=== PATIENT | female | born 1970 | race Caucasian/White ===

== ENCOUNTER 2017-07-30 02:16 | Emergency (ER) | payer BC | END 2017-07-30 03:25 | disposition home or self-care (01) | LOC: D.ER 02:16 | DX: M54.12 Radiculopathy, cervical region (principal); M25.511 Pain in right shoulder; S46.001A Unspecified injury of muscle(s) and tendon(s) of the rotator cuff of right shoulder, initial encounter; X58.XXXA Exposure to other specified factors, initial encounter; Y93.89 Activity, other specified; Y92.89 Other specified places as the place of occurrence of the external cause; K21.9 Gastro-esophageal reflux disease without esophagitis; I10 Essential (primary) hypertension; F17.200 Nicotine dependence, unspecified, uncomplicated ==

== ENCOUNTER → 2017-08-27 13:27 | Outpatient (CLI) | payer BC | END | disposition home or self-care (01) | LOC: D.MRI 13:27 | DX: M47.22 Other spondylosis with radiculopathy, cervical region (principal) ==

== ENCOUNTER 2017-11-19 05:30 | Day surgery (SDC) | payer BC ==
[2017-11-18 10:45] LABS: HEMATOCRIT 42.2 % (36.0-48.0); HEMOGLOBIN 14.2 g/dL (12-16); MCH 32.6 pg (26.0-34.0); MCHC 33.6 g/dL (31.0-37.0); MEAN PLATELET VOLUME 10.5 fL (7.4-10.4); RBC 4.35 10x6/uL (4.00-5.40); RDW 13.4 % (11.5-14.5); WBC 9.1 10x3/uL (4.8-10.8)
[~2017-11-19] VITALS: Ht 149.9 cm; Wt 65.6 kg
[2017-11-19] VITALS (15 sets, daily range): BP systolic 110–138; BP diastolic 68–90; Ht 149.9 cm; Wt 65.6 kg
--- NOTE | ~2017-11-19 | OP ---
PATIENT NAME: RODO ROPER MEDICAL RECORD: [id number] :74 LOCATION:JUNIOR ADMISSION DATE: SURGEON: VENESSA BRASHER MD DATE OF OPERATION: 11/19/2017 PREOPERATIVE DIAGNOSIS: Spinal cord compression secondary to disc herniation and osteophyte formation at C4-5 and C5-6. POSTOPERATIVE DIAGNOSIS: Spinal cord compression secondary to disc herniation and osteophyte formation at C4-5 and C5-6. PROCEDURES: Anterior cervical discectomy and fusion with PEEK interbody cages at C4-5 and C5-6, removal of osteophytes, ViaCell bone stem cell allograft. Separate Zavation spine anterior cervical plate and screws, removal of osteophytes. SURGEON: Venessa Brasher MD DESCRIPTION AND TECHNIQUE: After induction of general endotracheal anesthesia, the patient was positioned supine on the operating table. Neck was prepped and draped in usual sterile fashion. Fluoroscopic x-ray and freer localized the C4-5 interspace. After infiltration with 1% lidocaine with 1:100,000 epinephrine into the subcutaneous tissues, a transverse skin incision was carried out from the midline to the sternocleidomastoid muscle. The platysma was divided with Bovie cautery. Using blunt and sharp dissection with Metzenbaum scissors, I proceeded in avascular plane medial to the carotid sheath. The C4-5 interspace was identified with fluoroscopic x-ray and spinal needle. The longus colli muscles were elevated from bodies of C4, C5, and C6. Self-retaining retractors were placed deep to longus colli muscles. [place] distracting pins were placed in the bodies of C4, C5, and C6. The disc space at C4-5 and C5-6 was incised with #11 blade. A series of pituitary rongeurs and curettes were used to remove the disc material at C4-5 and C5-6. The osteophytes were drilled away posteriorly with Midas-Alfredo drill under microscope illumination. The posterior longitudinal ligament was removed with Cloward rongeurs. Following this, the dura was decompressed well at both interspaces of C5-6 and C4-5. A PEEK interbody 7-mm cage was placed at C4-5 and an 8-mm cage was placed at C5-6 under distraction with [place] pins. Prior to this, each cage was filled with ViaCell bone stem cell allograft. Next, a Zavation anterior cervical plate and screws, was separate unit with midline plate. A 30 mm was used to span the C4-5 and C5-6 interspaces. The screws were advanced through the plate under fluoroscopic control. The locking cams were tightened over the screw heads. Meticulous hemostasis was maintained throughout the wound. The wound was irrigated with copious amounts of Ancef irrigant solution. The platysma and subdermal layer were closed with interrupted 3-0 Vicryl suture. The skin was reapproximated with Steri-Strips and benzoin. A sterile dressing was applied to the wound. The patient was awakened in good condition and taken to recovery. All counts were reported as correct. Estimated blood loss was minimal. TRANSINT:[id number] Voice Confirmation ID: [id number] DOCUMENT ID: [id number] OPERATIVE REPORT [id number] RODO ROPER, VENESSA JACKSON at 1556 CC: [id number] DICTATION DATE: 11/19/17 173 SUPERVISOR SPECIAL EDUCATION: 11/19/17 1923 [facility] 11/20/17 [facility] [address] [place] [address]
[~2017-11-19 05:30] MED LIST: COZAAR50 MG PO; CYCLOBENZAPRINE10 MG PO; HYDROCODONE-APA1 TAB PO; LOVASTATIN40 MG PO; NORVASC10 MG PO
[2017-11-20] VITALS (14 sets, daily range): BP systolic 124–166; BP diastolic 69–89
== END 2017-11-20 15:30 | disposition home or self-care (01) ==
LOC: D.OPS 05:30 → D.CVICU 05:30 → D.OPS 07:30 → D.CVICU 11:17 → D.OPS 11-20 15:30
PROVIDERS: Anesthesiology
DX: M50.021 Cervical disc disorder at C4-C5 level with myelopathy (principal); M25.78 Osteophyte, vertebrae; Z01.812 Encounter for preprocedural laboratory examination

== ENCOUNTER 2019-06-23 00:07 | Inpatient (IN) | payer BC ==
[~2019-06-23] VITALS: Ht 149.9 cm; Wt 50.9 kg
[2019-06-23] VITALS (7 sets, daily range): BP systolic 117–146; BP diastolic 63–92; Ht 149.9 cm; Wt 50.9 kg
[2019-06-23] MEDS ORDERED: ZANAFLEX4 MG PO (00:22)
[2019-06-23] MEDS ORDERED: CELEXA20 MG PO (00:23)
[2019-06-23 01:13] LABS: BASOPHILS 0.4 % (0-2); EOSINOPHILS 1.5 % (0-7); HEMATOCRIT 43.4 % (36.0-48.0); HEMOGLOBIN 14.5 g/dL (12-16); IMMATURE GRANULOCYTES 0.2 % (0-5); LYMPHOCYTES 19.3 % (15-50); MCH 32.4 pg (26.0-34.0); MCHC 33.4 g/dL (31.0-37.0); MCV 97.1 fL (80.0-100.0); MEAN PLATELET VOLUME 10.9 fL (7.4-10.4); MONOCYTES 3.3 % (2-11); NEUTROPHILS 75.3 % (40-80); PLATELET COUNT 287 10x3/uL (130-400); RBC 4.47 10x6/uL (4.00-5.40); RDW 13.1 % (11.5-14.5); WBC 11.5 10x3/uL (4.8-10.8)
[2019-06-23 01:16] LABS: BILIRUBIN NEGATIVE (NEGATIVE); GLUCOSE NEGATIVE (NEGATIVE); KETONE NEGATIVE (NEGATIVE); NITRITE NEGATIVE (NEGATIVE); SPECIFIC GRAVITY 1.005 (1.005-1.020); UROBILINOGEN NORMAL (NORMAL)
[2019-06-23 01:19] LABS: HCG URINE NEGATIVE (NEGATIVE)
[2019-06-23 01:26] LABS: CALC OSMOLALITY 279 mosm/kg (275-300); CALCIUM 9.2 mg/dL (8.5-10.1); CARBON DIOXIDE 29.7 mmol/L (21.0-32.0); CHLORIDE - SERUM 104 mmol/L (98-107); CREATININE - SERUM 0.8 mg/dL (0.6-1.3); GLUCOSE 117 mg/dL (74-106); POTASSIUM - SERUM 3.4 mmol/L (3.5-5.1); SODIUM 141 mmol/L (136-145); UREA NITROGEN 8 mg/dL (7-18); eGFR NON AFRICAN AMERICAN 82 mL/min (90-120)
[2019-06-23 01:32] LABS: ALBUMIN 4.2 g/dL (3.4-5.0); ALKALINE PHOSPHATASE 72 U/L (30-120); ALT (SGPT) 19 U/L (10-68); BILIRUBIN - TOTAL 0.33 mg/dL (0.2-1.3); PROTEIN - SERUM 7.3 g/dL (6.4-8.2)
--- NOTE | 2019-06-23 03:22 | NUR ---
EDP AT HEAD OF BED ADJUSTING BED BEFORE PELVIC EXAM BEGAN. THIS NURSE LEFT ROOM TO GET WET PREP VERBALLY ORDERED BY EDP. EDP STILL AT H.O.B. WHEN THIS NURSE RE-ENTERED ROOM.
--- NOTE | 2019-06-23 04:53 | NUR ---
PT LEAVING FLOOR FOR ORDERED ULTRASOUND AT THIS TIME.
--- NOTE | 2019-06-23 06:00 | NUR ---
PT BACK FROM ULTRASOUND- CHECKED ONCE AGAIN IN SQUATTING POSITION FOR TAMPON WITHOUT SUCCESS.
--- NOTE | 2019-06-23 06:58 | NUR ---
DR HUTCHINS AND THIS NURSE AT BEDSIDE FOR PELVIC EXAM AT THIS TIME.
--- NOTE | 2019-06-23 07:15 | NUR ---
REPORT GIVEN TO ALLAN MCCOY
--- NOTE | 2019-06-23 08:33 | NUR ---
REPORT GIVEN TO ALLAN LI. PER GUILLERMO, ROOM IS DIRTY AT THIS TIME.
--- NOTE | 2019-06-23 09:00 | NUR ---
CALLED [facility], ROOM STILL DIRTY.
--- NOTE | 2019-06-23 12:24 | NUR ---
PT ADMINISTERED PRE OP MEDICATIONS. PT TAKEN VIA BED TO PRE OP FOR PROCEDURE
--- NOTE | 2019-06-23 14:45 | NUR ---
PT RECEIVED FROM POST OP FOLLOWING PROCEDURE. PT AWAKE, ALERT AND ORIENTED. PT ASSISTED TO BR, PT WAS ABLE TO VOID WITH SMALL BLOODY DISCHARGE NOTED. IV REMAINS INTACT TO LEFT AC. DENIES PAIN AT THIS TIME. CL WITHIN REACH. ENCOURAGED TO CALL WITH NEEDS. FAMILY AT BEDSIDE.
[2019-06-23] MEDS ORDERED: DIFLUCAN150 MG PO (16:56)
[2019-06-23] MEDS ORDERED: FLAGYL500 MG PO (16:57)
[2019-06-23] MEDS ORDERED: CIPRO500 MG PO (16:57)
--- NOTE | 2019-06-23 17:43 | NUR ---
PT DISCHARGE PAPERWORK PROVIDED. DISCUSSED POSTOP AFTERCARE, S/S TO MONITOR FOR INFECTION AND BLEEDING. PRESCRIPTIONS PROVIDED, EDUCATION PROVIDED REGARDING MEDICATIONS. PT VOICES UNDERSTANDING, DENYING ANY QUESTIONS. IV DISCONTINUED FROM LEFT AC, CATH INTACT. PT TAKEN TO PRIVATE VEHICLE WITH ALL PERSONAL POSESSIONS.
--- NOTE | 2019-06-24 08:37 | OP ---
PATIENT NAME: RODO ROPER MEDICAL RECORD: [id number] :74 LOCATION:D.MS Santos2210 ADMISSION DATE:06/23/19 SURGEON: ADAN CAMPOS MD DATE OF OPERATION: 06/23/2019 PREOPERATIVE DIAGNOSIS: Suspected retained foreign body within the rectum. POSTOPERATIVE DIAGNOSES: No evidence of retained foreign body in the rectum. PROCEDURE: Flexible sigmoidoscopy. SURGEON: Adan Campos MD GRANITE INSTALLER: None. BLOOD LOSS: 0. I was asked to see this patient by Dr. Hutchins. On examination, after a negative hysteroscopy, we could feel something at the base of the cervix at about 7 o'clock. It felt like a mass that was perhaps not in the rectovaginal septum, but perhaps this was located more posteriorly in the rectum. For that reason, I wanted to perform a flexible sigmoidoscopy to see if there is an intrarectal foreign body. The patient was in the lithotomy position. The colonoscope was inserted through the anus and I advanced it to 35 cm. There was no evidence of a rectal foreign body or a colonic foreign body. No colitis. No proctitis and no scarring. This was an unprepped sigmoidoscopy. A retroflexed view was obtained in the rectum. I then unretroflexed the scope and removed it under direct vision. TRANSINT:[id number] Voice Confirmation ID: [id number] DOCUMENT ID: [id number] ADAN CAMPOS MD at 0837 CC: TAL HUTCHINS MD [id number] DICTATION DATE: 06/23/19 1611 PISTON MAKER: 06/23/19 1834 DIS IN 06/23/19 [facility] [address] [place] [address]
== END 2019-06-23 17:45 | disposition home or self-care (01) | DRG 744 ==
LOC: D.ER 00:07 → D.MS 07:42
PROVIDERS: Family Medicine; ADMIT Obstetrics & Gynecology; ATTEND Obstetrics & Gynecology
PROC: 0UDB8ZZ Extraction of Endometrium, Via Natural or Artificial Opening Endoscopic (ICD-10-PCS; principal; 2019-06-23 12:00)
PROC: 0DJD8ZZ Inspection of Lower Intestinal Tract, Via Natural or Artificial Opening Endoscopic (ICD-10-PCS; 2019-06-23 12:00)
DX: T19.2XXA Foreign body in vulva and vagina, initial encounter (principal); F17.213 Nicotine dependence, cigarettes, with withdrawal; N71.9 Inflammatory disease of uterus, unspecified; N93.9 Abnormal uterine and vaginal bleeding, unspecified

== ENCOUNTER → 2019-07-03 07:55 | Outpatient (CLI) | payer BC ==
[2019-06-23 15:55] VITALS: BMI 22.6
[~2019-07-03 07:55] MED LIST changes: +CELEXA20 MG PO; +CIPRO500 MG PO; +DIFLUCAN150 MG PO; +FLAGYL500 MG PO; +ZANAFLEX4 MG PO
== END | disposition home or self-care (01) ==
LOC: D.CT 07:55
PROVIDERS: ATTEND Obstetrics & Gynecology
DX: Z18.9 Retained foreign body fragments, unspecified material (principal)

== ENCOUNTER 2019-07-07 00:48 | Emergency (ER) | payer BC ==
[~2019-07-07] VITALS: Ht 149.9 cm; Wt 54.5 kg
[2019-07-07 01:15] VITALS: Ht 149.9 cm; Wt 54.5 kg
[2019-07-07 01:45] LABS: BASOPHILS 0.5 % (0-2); EOSINOPHILS 1.5 % (0-7); HEMATOCRIT 43.4 % (36.0-48.0); HEMOGLOBIN 14.3 g/dL (12-16); IMMATURE GRANULOCYTES 0.3 % (0-5); LYMPHOCYTES 22.1 % (15-50); MCH 31.8 pg (26.0-34.0); MCHC 32.9 g/dL (31.0-37.0); MCV 96.7 fL (80.0-100.0); MEAN PLATELET VOLUME 10.5 fL (7.4-10.4); MONOCYTES 4.1 % (2-11); NEUTROPHILS 71.5 % (40-80); PLATELET COUNT 319 10x3/uL (130-400); RBC 4.49 10x6/uL (4.00-5.40); RDW 13.8 % (11.5-14.5); WBC 15.7 10x3/uL (4.8-10.8)
[2019-07-07 01:52] LABS: CARBON DIOXIDE 30.3 mmol/L (21.0-32.0); CREATININE - SERUM 0.9 mg/dL (0.6-1.3); POTASSIUM - SERUM 3.3 mmol/L (3.5-5.1)
[2019-07-07 01:56] LABS: BILIRUBIN NEGATIVE (NEGATIVE); GLUCOSE NEGATIVE (NEGATIVE); KETONE NEGATIVE (NEGATIVE); NITRITE NEGATIVE (NEGATIVE); UROBILINOGEN NORMAL (NORMAL)
[2019-07-07 01:57] LABS: BACTERIA FEW /hpf (NEGATIVE); EPITHELIAL CELLS 0-5 /hpf (0-5); WHITE CELLS - URINE 0-5 /hpf (NEGATIVE)
[2019-07-07 01:57] LABS: ALBUMIN 4.3 g/dL (3.4-5.0); BILIRUBIN - TOTAL 0.38 mg/dL (0.2-1.3); PROTEIN - SERUM 7.5 g/dL (6.4-8.2)
[2019-07-07 01:58] LABS: CALCIUM OXALATE CRYSTALS 0-5 /hpf (NONE SEEN)
[2019-07-07 04:27] VITALS: BP 112/68
== END 2019-07-07 04:27 | disposition home or self-care (01) ==
LOC: D.ER 00:48
PROVIDERS: Family Medicine
DX: G89.18 Other acute postprocedural pain (principal); I10 Essential (primary) hypertension; Z72.0 Tobacco use

== ENCOUNTER 2019-07-09 07:00 | Day surgery (SDC) | payer BC ==
[2019-07-08 11:37] LABS: BASOPHILS 0.6 % (0-2); EOSINOPHILS 4.6 % (0-7); HEMATOCRIT 42.3 % (36.0-48.0); HEMOGLOBIN 13.5 g/dL (12-16); IMMATURE GRANULOCYTES 0.2 % (0-5); LYMPHOCYTES 18.3 % (15-50); MCH 31.5 pg (26.0-34.0); MCHC 31.9 g/dL (31.0-37.0); MCV 98.6 fL (80.0-100.0); MEAN PLATELET VOLUME 10.8 fL (7.4-10.4); MONOCYTES 5.8 % (2-11); NEUTROPHILS 70.5 % (40-80); PLATELET COUNT 319 10x3/uL (130-400); RBC 4.29 10x6/uL (4.00-5.40); RDW 13.9 % (11.5-14.5); WBC 13.3 10x3/uL (4.8-10.8)
[2019-07-08 11:42] LABS: CALC OSMOLALITY 276 mosm/kg (275-300); CALCIUM 9.2 mg/dL (8.5-10.1); CARBON DIOXIDE 29.8 mmol/L (21.0-32.0); CHLORIDE - SERUM 100 mmol/L (98-107); CREATININE - SERUM 0.7 mg/dL (0.6-1.3); GLUCOSE 101 mg/dL (74-106); SODIUM 138 mmol/L (136-145); UREA NITROGEN 15 mg/dL (7-18); eGFR NON AFRICAN AMERICAN > 90 mL/min (90-120)
[2019-07-08 11:44] LABS: UDS - AMPHET NEGATIVE QUAL (NEGATIVE); UDS - BARB NEGATIVE QUAL (NEGATIVE); UDS - BENZO NEGATIVE QUAL (NEGATIVE); UDS - COCAINE NEGATIVE QUAL (NEGATIVE); UDS - OPIATE POSITIVE QUAL (NEGATIVE); UDS - PCP NEGATIVE QUAL (NEGATIVE); UDS - THC POSITIVE QUAL (NEGATIVE)
[2019-07-08 11:45] LABS: POTASSIUM - SERUM 4.1 mmol/L (3.5-5.1)
[~2019-07-09] VITALS: Ht 149.9 cm; Wt 53.5 kg
--- NOTE | ~2019-07-09 | OP ---
PATIENT NAME: RODO ROPER MEDICAL RECORD: [id number] :74 LOCATION:D.OPS ADMISSION DATE: SURGEON: TAL HUTCHINS MD DATE OF OPERATION: 07/09/2019 DATE OF SERVICE: 07/09/2019 PREOPERATIVE DIAGNOSES: 1. Pelvic pain. 2. Dysuria. POSTOPERATIVE DIAGNOSES: 1. Pelvic pain. 2. Dysuria. 3. Pelvic adhesions. 4. Endometriosis. PROCEDURE PERFORMED: 1. Diagnostic laparoscopy. 2. Lysis of adhesions. 3. Cystoscopy. SURGEON: Tal Hutchins MD CIVIL ENGINEERING SPECIALIST: Glen Hawthorne. ANESTHESIOLOGIST: Dr. Kim. ANESTHESIA: General. FINDINGS: Adhesions of the left tube to the sidewall with tube found to be on tension. There are multiple thin adhesions in the cul-de-sac and active lesions consistent with endometriosis present. Both ovaries are unremarkable. After hydrodistention, there are no glomerulations, petechiae and no ulcerations are identified. Both ureteral orifices appear unremarkable. SPECIMENS REMOVED: None. SPECIMEN DISPOSITION: None applicable. ESTIMATED BLOOD LOSS: Minimal. FLUIDS: 800 cc lactated Ringer's. URINE OUTPUT: 600 cc, frothy and tinted. INDICATIONS: The patient is a 48-year-old with dyspareunia and pelvic pain. The patient states the pain is impacting quality of life. The pain has increased in intensity over the last several months. The patient is consented for diagnostic laparoscopy and cystoscopy due to recurrent treatment of UTIs with negative findings on culture. DESCRIPTION OF PROCEDURE: After informed consent was assured, the patient was taken to the operating room where anesthetic was obtained without difficulty. The patient was now prepped and draped in the usual sterile fashion and placed OPERATIVE REPORT [id number] RODO ROPER in [facility]. An incision was made in the umbilicus to accommodate a 5-mm trocar, which was inserted without difficulty and pneumoperitoneum developed. Accessory ports are now placed in the lower pelvis. With the patient in the steep Trendelenburg position and the bowel swept free, the above findings were encountered. Using EndoShears, the adhesions are taken down. After the adhesions of the tube were taken down, inspection of the cul-de-sac reveals filmy adhesions along with a clear blister lesions and occasional powder burn lesion consistent with active endometriosis. Both ovaries are unremarkable. At this point, the laparoscopic procedure was discontinued and pneumoperitoneum released. All trocar sites were closed with a subcuticular stitch. With the legs properly positioned, a 70-degree cystoscope was now introduced under direct visualization. With the distention media being water at 100 cm, the bladder was filled to its capacity and then drained. Reinstitution of the distention media reveals no petechiae, trabeculations or ulceration. Both ureteral orifices are identified. Pyridium was used to assist with this. The cystoscopy was now discontinued after the bladder was drained. Sponge, lap, needle count correct times 2. The patient was awakened and went to the recovery area in stable condition. TRANSINT:[id number] Voice Confirmation ID: [id number] DOCUMENT ID: [id number] TAL HUTCHINS MD CC: [id number] DICTATION DATE: 07/21/19724 BILLING CLERK: 07/21/1959 [facility] 07/09/19 [id number] [place] [address]
[2019-07-09] MEDS ORDERED: PEPCID40 MG PO (07:40)
[2019-07-09] MEDS ORDERED: CO Q-10100 MG PO (07:42)
[2019-07-09] MEDS ORDERED: FISH OIL 1,0001 CA1 PO (07:42)
[2019-07-09] MEDS ORDERED: ATIVAN0.5 MG PO (07:42)
[2019-07-09] MEDS ORDERED: NAPROSYN500 MG PO (07:43)
[2019-07-09 07:44] LABS: HCG URINE NEGATIVE (NEGATIVE)
[2019-07-09] MEDS ORDERED: MACRODANTIN100 MG PO (07:44)
[2019-07-09] MEDS ORDERED: PHENAZOPYRIDIN200 MG PO (07:44)
[2019-07-09 07:52] VITALS: BP 116/84; Ht 149.9 cm; Wt 53.5 kg
--- NOTE | 2019-07-09 08:52 | NUR ---
0852-SPOKE WITH DUSTIN IN NINFECTION CONTROL. STATES DUE TO RECENT OVERNIGHT STAY IN HOSPITAL-NO INFECTIOUS PROCESS WAS IDENTIFIED-NO ISOLATION NEEDED @ THIS TIME.
== END 2019-07-09 14:40 | disposition home or self-care (01) ==
LOC: D.OPS 07:00
PROVIDERS: Anesthesiology; ATTEND Obstetrics & Gynecology
DX: R10.2 Pelvic and perineal pain (principal); R30.0 Dysuria; N73.6 Female pelvic peritoneal adhesions (postinfective); N80.9 Endometriosis, unspecified

== ENCOUNTER 2019-08-10 11:35 | Observation (INO) | payer BC ==
[2019-08-06 14:49] LABS: BASOPHILS 0.6 % (0-2); EOSINOPHILS 3.5 % (0-7); HEMATOCRIT 45.1 % (36.0-48.0); HEMOGLOBIN 14.6 g/dL (12-16); IMMATURE GRANULOCYTES 0.3 % (0-5); LYMPHOCYTES 23.4 % (15-50); MCHC 32.4 g/dL (31.0-37.0); MCV 98.9 fL (80.0-100.0); MEAN PLATELET VOLUME 10.5 fL (7.4-10.4); MONOCYTES 5.8 % (2-11); NEUTROPHILS 66.4 % (40-80); PLATELET COUNT 299 10x3/uL (130-400); RBC 4.56 10x6/uL (4.00-5.40); RDW 13.9 % (11.5-14.5); WBC 10.7 10x3/uL (4.8-10.8)
[2019-08-06 14:57] LABS: UDS - AMPHET NEGATIVE QUAL (NEGATIVE); UDS - BARB NEGATIVE QUAL (NEGATIVE); UDS - BENZO NEGATIVE QUAL (NEGATIVE); UDS - COCAINE NEGATIVE QUAL (NEGATIVE); UDS - OPIATE POSITIVE QUAL (NEGATIVE); UDS - PCP NEGATIVE QUAL (NEGATIVE); UDS - THC NEGATIVE QUAL (NEGATIVE)
[2019-08-06 15:05] LABS: CALC OSMOLALITY 275 mosm/kg (275-300); CALCIUM 9.7 mg/dL (8.5-10.1); CARBON DIOXIDE 30.5 mmol/L (21.0-32.0); CHLORIDE - SERUM 100 mmol/L (98-107); CREATININE - SERUM 0.7 mg/dL (0.6-1.3); GLUCOSE 89 mg/dL (74-106); POTASSIUM - SERUM 4.1 mmol/L (3.5-5.1); SODIUM 139 mmol/L (136-145); UREA NITROGEN 9 mg/dL (7-18); eGFR NON AFRICAN AMERICAN > 90 mL/min (90-120)
[2019-08-10] VITALS (15 sets, daily range): BP systolic 82–106; BP diastolic 47–72; Ht 149.9 cm; Wt 50.9 kg
[~2019-08-10] VITALS: Ht 149.9 cm; Wt 50.9 kg
[2019-08-10 05:51] LABS: HCG URINE NEGATIVE (NEGATIVE)
--- NOTE | 2019-08-10 10:05 | NUR ---
REC'D TO ROOM 1222 FROM PACU. DROWSY BUT EASILY AROUSES TO VOICES. VSS. C/O ABD AND INCISIONAL DISCOMFORT 10/15. RESP REGULAR AND UNLABORED, BREATH SOUNDS CLEAR AND EQUAL. PT REPORTS THAT SHE SLEEPS WITH CPAP AT HOME AND REQUESTS FOR CPAP TO BE [place] UNIT, STATES THAT [facility]ANT OTHER HAS IT HERE IN [place], NOTIFIED AND WILL BRING TO UNIT. MONROY DRAINING TO BEDSIDE DRAINAGE SYSTEM CLEAR LIGHT YELLOW URINE WITH 350 MLS PRESENT. L FA PIV INFUSING WITHOUT DIFFICULTY, NO S/S OF INFILTRATION NOTED. BOWEL SOUNDS PRESENT AND HYPOACTIVE X4 QUADS. 4 INCISIONS NOTED, RLQ, LLQ, AT PUBIC REGION, AND IN UMIBILICUS, ALL WELL APPROXIMATED WITH GLUE INTACT, NO DRAINAGE NOTED. SCD'S PLACED. WILL PLACE ICE PACK ATTEMPTED INCENTIVE SPIROMETER USE BUT PT TO DROWSY TO PREFORM AT THIS TIME. BED IN LOW POSITION WITH SRUP X2. CALL LIGHT AND PHONE WITHIN REACH. WILL CONTINUE TO MONITOR.
--- NOTE | 2019-08-10 10:47 | NUR ---
CPAP TO UNIT BY PT SIGNIFICANT OTHER. CPAP PLACED ON BY PT. VSS. PAIN NOW 07/16. VSS. ICE CHIPS PROVIDED, REPORTS IMPROVEMENT IN NAUSEA. WILL CONTINUE TO MONITOR. BED IN LOW POSITION WITH SRUP X2. CALL LIGHT AND PHONE WITHIN REACH.
--- NOTE | 2019-08-10 11:26 | NUR ---
RN TO BEDSIDE. PT EASILY AROUSES TO VOICE, HOWEVER GROGGY AND FALLS ASLEEP PRIOR TO COMPLETING SENTENCES. REPORTS THAT SHE IS SORE IN ABD AREA, ICE PACK REMAINS IN PLACE. I&O DONE. DENIES NEED FOR INTERVENTION. SCD'S ON BLE.
[~2019-08-10 11:35] MED LIST changes: +ATIVAN0.5 MG PO; +CO Q-10100 MG PO; +FISH OIL 1,0001 CA1 PO; +MACRODANTIN100 MG PO; +NAPROSYN500 MG PO; +PEPCID40 MG PO; +PHENAZOPYRIDIN200 MG PO
--- NOTE | 2019-08-10 12:03 | NUR ---
RESTING COMFORTABLY, VSS. BED IN LOW POSITION WITH SRUP X2. CALL LIGHT AND PHONE WITHIN REACH. WILL CONTINUE TO MONITOR.
--- NOTE | 2019-08-10 12:41 | NUR ---
VSS. CONTINUES TO REST WITH EYES CLOSED, AROUSES TO VOICE AND FALLS BACK ASLEEP. SCD'S ON BLE. WILL CONTINUE TO MONITOR.
--- NOTE | 2019-08-10 13:15 | NUR ---
RESTING QUIETLY. VSS. AROUSES TO VOICE. INSTRUCTED ON INCENTIVE SPIROMETER USE WITH RETURN DEMO FROM PT. REPOSITIONED TO R SIDE INDEPENDENTLY.
--- NOTE | 2019-08-10 14:02 | NUR ---
A&O X4 CURRENTLY. C/O ABD PAIN 11/15 AND REQUESTS INTERVENTION. DENIES NAUSEA. ICE WATER PROVIDED. R FA PIV SL. PAIN MED INTERVENTIONS DISCUSSED AND PROVIDED PER EMAR. PT CURRENTLY SITTING IN HIGH FOWLERS POSITION TALKING ON CELL PHONE. BED IN LOW POSITION WITH SRUP X2. SCD'S OFF PER PT REQUEST.
--- NOTE | 2019-08-10 14:04 | NUR ---
VSS. DENIES NEEDS AT THIS TIME. WILL CONTINUE TO MONITOR.
--- NOTE | 2019-08-10 16:47 | NUR ---
AA&O X4. INCENTIVE SPIROMETER DONE, MONROY OUT WITH TOTAL OUTPUT OF 2300 MLS SINCE REC BACK FROM PACU. OOB WITH MIN ASSIST, UNSTEADY AT FIRST. PERICARE DONE. PAD AND PANTIES PLACE, SMALL AMT BROWN DISCHARGE NOTED ON PREVIOUS PAD. AFTER STANDING AT BEDSIDE, STEADY GAIT NOTED. AMBULATORY ON UNIT WITH STANDBY ASSIST. BACK TO ROOM, IN BED BED IN LOW POSITION WITH SRUP X2. CALL LIGHT AND PHONE WITHIN REACH. WILL CONTINUE TO MONITOR.
--- NOTE | 2019-08-10 19:30 | NUR ---
PT AMB IN [place], GAIT STEADY, DENIES NEEDS OR PAIN AT THIS TIME
--- NOTE | 2019-08-10 19:35 | NUR ---
PT BACK TO ROOM
--- NOTE | 2019-08-10 19:45 | NUR ---
PT REPORTS SHE VOIDED, THIS RN TO ROOM, EMPTIED 250 MLS OF CLEAR YELLOW URINE FROM [place] [facility]
--- NOTE | 2019-08-10 20:33 | NUR ---
PT OUT OF ROOM AT THIS TIME, SUNNY PATTERSON RN REPORTS THAT PT TOOK A WALK WITH A FAMILY MEMBER
--- NOTE | 2019-08-10 21:05 | NUR ---
PT BACK IN ROOM, APPLIED NICOTINE PATCH PER MD ORDERS, SEE EMAR, PT DENIES NEEDS AT THIS TIME
--- NOTE | 2019-08-10 22:35 | NUR ---
PT RESTING WITH EYES CLOSED, RESP QUIET, NO DISTRESS NOTED, LEFT UNDISTURBED AT THIS TIME, BED IN LOW POSITION, SIDE RAILS X 2, CALL LIGHT IN REACH
--- NOTE | 2019-08-10 23:14 | NUR ---
PT RESTING WITH EYES CLOSED, AROUSES TO SOFT VERBAL STIMULATION, VS OBTAINED, SALINE LOCK FLUSHED, ADM TORADOL SIVP PER MD ORDERS, SEE EMAR, SALINE LOCK FLUSHED, PT UP TO BR, GAIT STEADY, VOIDED 400 MLS OF CLEAR YELLOW URINE BY SELF WITH NO DIFFICULTY, PT BACK TO BED, DENIES FURTHER NEEDS, BED IN LOW POSITION, SIDE RAILS X 2, CALL LIGHT IN REACH
--- NOTE | 2019-08-11 00:30 | NUR ---
PT RESTING WITH EYES CLOSED, RESP QUIET, NO DISTRESS NOTED, LEFT UNDISTURBED AT THIS TIME
--- NOTE | 2019-08-11 02:36 | NUR ---
PT RESTING WITH EYES CLOSED, RESP QUIET, NO DISTRESS NOTED, LEFT UNDISTURBED AT THIS TIME
--- NOTE | 2019-08-11 03:45 | NUR ---
PT RESTING WITH EYES CLOSED, RESP QUIET, NO DISTRESS NOTED, LEFT UNDISTURBED AT THIS TIME
[2019-08-11 04:23] VITALS: BP 102/63
--- NOTE | 2019-08-11 04:23 | NUR ---
PT HYDRATOR OPERATOR LIGHT, REPORTS ICE PACK LEAKED, GOWN AND TOP SHEET CHANGED, PT REQUESTED EXTRA BLANKET, AIR ADJ, REQUESTED AND SERVED DR MCMULLEN WITH ICE, DENIES FURTHER NEEDS
--- NOTE | 2019-08-11 05:06 | NUR ---
PT AWAKE, WATCHING TV, SALINE LOCK FLUSHED, ADM TORADOL SIVP PER MD ORDERS, SEE EMAR, SALINE LOCK FLUSHED, ADM PERCOCET PO PER MD ORDERS, SEE EMAR, PT DENIES FURTHER NEEDS AT THIS TIME
--- NOTE | 2019-08-11 05:50 | NUR ---
PT FOIL WRAPPER LIGHT, PT UP TO BR WITH ASSISTANCE, GAIT STEADY, VOIDED BY SELF WITH NO DIFFICULTY, PT BACK TO BED, RATES PAIN 3/10, DENIES FURTHER NEEDS
--- NOTE | 2019-08-11 07:05 | NUR ---
PT CALLS NURSE TO ROOM, THIS RN AND ADALGISA ROBLES RN TO ROOM. UPON ENTERING ROOM, PT IS SITTING ON BATHROOM FLOOR ON HER BUTTOCKS WITH KNEES PULLED UP TO ABDOMEN. PT STATES "THE TOILET SEAT SLIPPED OUT FROM UNDER ME AND I FELL TO THE FLOOR". PT ASSISTED UP TO STANDING POSITION, NO REDNESS OR BRUISING OR CUTS/CONTUSIONS NOTED TO RIGHT HIP/BUTTOCKS, AREA PT STATES HIT THE FLOOR. GAIT IS STEADY. PT THEN BACK TO BED, ORIENTED X4, PT STATES SHE DID NOT HIT ANY OTHER PARTS OF HER BODY. SRUP X 2, CALL LIGHT AND PHONE WITHIN REACH. PT SERVED ASH[place]E [place] REQUESTED. DENIES ALL OTHER NEEDS.
[2019-08-11 08:00] VITALS: BP 121/68
--- NOTE | 2019-08-11 08:43 | NUR ---
DR. HUTCHINS IN ROOM SPEAKING WITH PT.
--- NOTE | 2019-08-11 10:18 | NUR ---
PT BACK TO ROOM AFTER AMBULATING IN [place]ALLWAYS. PT THEN VOIDS PER SELF WITHOUT DIFFICULTY. BACK TO BED. SRUP X2, CALL LIGHT AND PHONE WITHIN REACH.
--- NOTE | 2019-08-11 10:53 | OP ---
PATIENT NAME: RODO ROPER MEDICAL RECORD: [id number] :74 LOCATION:[facility] D.1222 ADMISSION DATE:08/10/19 SURGEON: RAJAN HUTCHINS MD DATE OF OPERATION: 08/10/2019 PREOPERATIVE DIAGNOSES: 1. Dysmenorrhea. 2. Dysfunctional uterine bleeding. 3. Pelvic pain. POSTOPERATIVE DIAGNOSES: 1. Dysmenorrhea. 2. Dysfunctional uterine bleeding. 3. Pelvic pain. 4. Moderate pelvic adhesions. SURGEON: Rajan Hutchins MD PUBLICATION DISTRIBUTOR: Pedro. CNC SERVICE ENGINEER: Brandon Gee. ANESTHESIOLOGIST: Dr. Waters. ANESTHETIC: General. FINDINGS: The uterus position is retroverted. Uterus is noted to be boggy. Both tubes were interrupted bilaterally. The right ovary is unremarkable. Left ovary and tube is densely adhered to the bowel and left sidewall. SPECIMENS REMOVED: 1. Uterus with cervix. 2. Bilateral tubes and ovaries. SPECIMEN DISPOSITION: All specimens to pathology. ESTIMATED BLOOD LOSS: Less than or equal to 100 cc. FLUIDS: 1200 cc lactated Ringer's. URINE OUTPUT: 175 cc of clear urine. COMPLICATIONS: None. DRAINS: Perry to gravity, discontinued in PACU. INDICATIONS: The patient is a 48-year-old female with dysfunctional uterine bleeding and extreme dysmenorrhea and pelvic pain, and has a negative impact on quality of life and is now beginning to interfere with work. The patient has had diagnostic laparoscopy in the past and hysteroscopy. The patient has declined further medical management and desires both ovaries were removed at the time of hysterectomy. DESCRIPTION OF PROCEDURE: After informed consent was assured, the patient was taken to the operating room where anesthetic was obtained. The patient was OPERATIVE REPORT [id number] RODO ROPER placed in yellow in [facility] and prepped and draped in the usual sterile fashion. A uterine manipulator was placed. Attention now directed to the umbilicus. An incision is made to accommodate a 5-mm trocar, which was inserted without difficulty and pneumoperitoneum was established. The patient was in Trendelenburg position. Accessory ports put in the right and left lower quadrants. The right lower quadrant port was 11 mm and left lower quadrant port was 5 mm. A blunt probe was now used to sweep the bowel free of the pelvis. Visualization of the cul-de-sac reveals thin adhesions with dense adhesions noted in the left adnexa. At this point, a grasper was inserted from the left and the right tube and ovary elevated. With the ureter being well below the operative field, the infundibulopelvic ligament was now compressed, coagulated, and at its attachment to the ovary. The dissection was carried out underneath the left tube and ovary across the round ligament and anterior leaf of the broad ligament was opened and the bladder flap developed beyond the midline. The posterior leaf was dissected free of the vascular bundle on the right side, which is now compressed, coagulated, and at the level of the internal os. Attention was now directed to the left side. With the left tube and ovary elevated from the left, EndoShears were passed in from the right and the adhesions of the left tube and ovary taken down sharply. Once the tube and ovary has been mobilized, the adnexal structures are retracted to the midline and using a Thunderbeat coagulation cutter, the IP was compressed, coagulated, and from the left. Once the IP has been , dissection was carried out underneath the left ovary and tube across the round ligaments and the anterior leaf of the broad ligament was opened and the bladder flap fully developed. The posterior leaf was dissected free of the vascular bundle of the left side, which was now compressed, coagulated, and at the level of the internal os. Dissection of the uterus from the vaginal cuff began at the 12 o'clock position concluding at the 6. The dissection concludes on the right from 12-6, moving in a clockwise fashion. Uterus, tubes and ovaries were pulled into the vagina to maintain a pneumoperitoneum. The pelvis was irrigated and irrigant removed. Adequate hemostasis was noted at all dissection points. The cuff was now closed with 0 Stratafix ligature. The initial stitch was placed at the right corner of the cuff and whipped across to the left. A second pass closed was reapproximated to the peritoneum from left to right. The stitches cut close to the peritoneum and needle removed. The pelvis again was irrigated, irrigant removed with adequate reapproximation of all tissues and hemostasis. Pneumoperitoneum was released as the accessory trocars were removed and the primary trocar was now removed. All sites were closed with a subcuticular stitch and Dermabond. Sponge, lap, and needle counts correct times 2. This patient was awakened and went to the recovery area in stable condition. TRANSINT:[id number] Voice Confirmation ID: [id number] DOCUMENT ID: [id number] RAJAN HUTCHINS MD at 1053 CC: [id number] DICTATION DATE: 08/10/19 0900 SALES SERVICE PROFESSIONAL: 08/10/19 1511 ADM IN [address] [id number] [place] [address]
--- NOTE | 2019-08-11 11:10 | NUR ---
PT CALLS OUT REQUESTING PAIN MED. THIS RN TO BEDSIDE WITH TORDAL GIVEN SCANNED TO EMAR. RATES PAIN AT 11/15.
--- NOTE | 2019-08-11 11:36 | NUR ---
SALINE LOCK REMOVED WITH CATH INTACT. PT IS GETTING DRESSED AND STATES HER RIDE SHOULD BE HERE BE NOON.
[2019-08-11] MEDS ORDERED: NEURONTIN 300300 MG PO (11:41)
[2019-08-11] MEDS ORDERED: PERCOCET 7.5/321 TAB PO (11:42)
[2019-08-11] MEDS ORDERED: MOBIC7.5 MG PO (11:42)
--- NOTE | 2019-08-11 11:46 | NUR ---
PT AMB OFF UNIT AT THIS TIME.
--- NOTE | 2019-08-11 12:30 | NUR ---
DISCHARGE INSTRUCTIONS EXPLAINED TO PT, ALONG WITH PRESCRIPTIONS GIVEN TO PT. COPIES PROVIDED. PT STATING "I THINK I HAVE A RED SPOT AND A FEW SCRATCHES FROM WHERE I FELL OFF OF THE TOILET". UPON INSPECTION OF RIGHT HIP AREA, NO REDNESS, BRUISING, SCRATCHES OR OPEN AREAS, NO SWELLING NOTED. THE ONLY DISCOLORATION NOTED IS FROM THE SURGICAL PREP THAT REMAINS ON ABDOMEN/HIP AREA, LIGHT ORANGE IN COLOR, AND THREE STRETCH SAHNI NOTED JUST ABOVE RIGHT HIP. SIG OTHER STATES, "THERE IS NOTHING THERE EXCEPT THE STRETCH SAHNI WHEN YOU LOST ALL THAT WEIGHT". INFORMED PT WOULD NOTIFY DR. HUTCHINS OF HER CONCERNS, SHE STATES "OH NO, NO, DON'T CALL HIM BACK DOWN HERE. I'M OK, IT WAS MY FAULT, I SHOULD HAVE ASKED FOR HELP GETTING UP ". PT DENIES ALL OTHER NEEDS AT THIS TIME. PREPARING FOR DISCHARGE. WILL BRING WHEELCHAIR TO PT FOR DISCHARGE.
--- NOTE | 2019-08-11 12:35 | NUR ---
WHEELCHAIR BROUGHT FROM LD TO WS, TO ROOM, AND NOTED PT AND SIG OTHER IS NOT IN ROOM, OR ON UNIT, AND ALL BELONGINGS ARE OUT OF ROOM. DR. HUTCHINS NOTIFIED OF PT'S CONCERNS, HER WISH FOR HIM NOT TO COME TO UNIT, AND NOW PT HAS LEFT UNIT FOR DISCHARGE.
--- NOTE | 2019-08-11 12:40 | NUR ---
FARHAN GOMES, PT'S SIG OTHER BACK ON UNIT, STATES SHE THINKS SHE LEFT A CORD TO HER CPAP, CORD NOT IN ROOM. FARHAN STATES "WE DECIDED TO GO AHEAD AND WALK OUT TO THE CAR TO SAVE YOU SOME TROUBLE".
--- NOTE | 2019-08-11 13:20 | NUR ---
NOTED MADE AT 1230, 1235, AND 1240 WERE BY Socorro MADRID RN AND NOT Alondra GUERRA RN.
== END 2019-08-11 12:35 | disposition home or self-care (01) ==
LOC: D.PAN 11:35 → D.WS 14:19 → D.PAN 14:21 → D.WS 14:22 → OBSVTIME 14:22 → D.WS 08-11 12:35
PROVIDERS: ADMIT Obstetrics & Gynecology; ATTEND Obstetrics & Gynecology
DX: N93.8 Other specified abnormal uterine and vaginal bleeding (principal); N94.6 Dysmenorrhea, unspecified

== ENCOUNTER 2019-10-24 03:42 | Emergency (ER) | payer BC ==
[~2019-10-24] VITALS: Ht 149.9 cm; Wt 49.9 kg
[~2019-10-24 03:42] MED LIST changes: +MOBIC7.5 MG PO; +NEURONTIN 300300 MG PO; +PERCOCET 7.5/321 TAB PO
[2019-10-24 03:56] VITALS: Ht 149.9 cm; Wt 49.9 kg
[2019-10-24 04:21] LABS: BILIRUBIN NEGATIVE (NEGATIVE); GLUCOSE NEGATIVE (NEGATIVE); KETONE NEGATIVE (NEGATIVE); NITRITE NEGATIVE (NEGATIVE); UROBILINOGEN NORMAL (NORMAL)
[2019-10-24 04:28] LABS: BASOPHILS 0.8 % (0-2); HEMATOCRIT 37.5 % (36.0-48.0); HEMOGLOBIN 12.3 g/dL (12-16); IMMATURE GRANULOCYTES 0.1 % (0-5); LYMPHOCYTES 31.9 % (15-50); MCH 31.6 pg (26.0-34.0); MCHC 32.8 g/dL (31.0-37.0); MCV 96.4 fL (80.0-100.0); MEAN PLATELET VOLUME 10.7 fL (7.4-10.4); MONOCYTES 4.8 % (2-11); NEUTROPHILS 57.4 % (40-80); PLATELET COUNT 240 10x3/uL (130-400); RBC 3.89 10x6/uL (4.00-5.40); RDW 13.5 % (11.5-14.5); WBC 8.7 10x3/uL (4.8-10.8)
[2019-10-24 04:39] LABS: ANION GAP 8.7 mmol/L (8-16); CALCIUM 8.7 mg/dL (8.5-10.1); CARBON DIOXIDE 29.9 mmol/L (21.0-32.0); POTASSIUM - SERUM 3.6 mmol/L (3.5-5.1)
[2019-10-24 04:40] LABS: UDS - AMPHET NEGATIVE QUAL (NEGATIVE); UDS - BARB NEGATIVE QUAL (NEGATIVE); UDS - BENZO NEGATIVE QUAL (NEGATIVE); UDS - COCAINE NEGATIVE QUAL (NEGATIVE); UDS - OPIATE POSITIVE QUAL (NEGATIVE); UDS - PCP NEGATIVE QUAL (NEGATIVE); UDS - THC NEGATIVE QUAL (NEGATIVE)
[2019-10-24 04:44] LABS: ALBUMIN 4.2 g/dL (3.4-5.0); BILIRUBIN - TOTAL 0.36 mg/dL (0.2-1.3); C-REACTIVE PROTEIN 0.8 mg/dL (0.0-0.9); PROTEIN - SERUM 7.2 g/dL (6.4-8.2)
[2019-10-24 05:10] VITALS: BP 114/65
== END 2019-10-24 05:05 | disposition home or self-care (01) ==
LOC: D.ER 03:42
PROVIDERS: Family Medicine
DX: M25.551 Pain in right hip (principal); I10 Essential (primary) hypertension; J44.9 Chronic obstructive pulmonary disease, unspecified; K21.9 Gastro-esophageal reflux disease without esophagitis; Z72.0 Tobacco use

== ENCOUNTER 2019-12-26 15:20 | Emergency (ER) | payer BC ==
[~2019-12-26] VITALS: Ht 149.9 cm; Wt 52.3 kg
[2019-12-26 15:51] VITALS: Ht 149.9 cm; Wt 52.3 kg
[2019-12-26 17:11] VITALS: BP 119/84
== END 2019-12-26 17:12 | disposition home or self-care (01) ==
LOC: D.ER 15:20
DX: M54.5 Low back pain (principal); I10 Essential (primary) hypertension; J44.9 Chronic obstructive pulmonary disease, unspecified; K21.9 Gastro-esophageal reflux disease without esophagitis

== ENCOUNTER 2020-06-14 14:22 | Emergency (ER) | payer BC ==
[~2020-06-14] VITALS: Ht 149.9 cm; Wt 54.5 kg
[2020-06-14 14:37] VITALS: BP 123/69; Ht 149.9 cm; Wt 54.5 kg
[2020-06-14] MEDS ORDERED: LYRICA25 MG (14:39)
[2020-06-14 15:39] LABS: CALC OSMOLALITY 280 mosm/kg (275-300); CALCIUM 9.1 mg/dL (8.5-10.1); CARBON DIOXIDE 25.7 mmol/L (21.0-32.0); CHLORIDE - SERUM 102 mmol/L (98-107); CREATININE - SERUM 0.9 mg/dL (0.6-1.3); POTASSIUM - SERUM 3.1 mmol/L (3.5-5.1); SODIUM 139 mmol/L (136-145); UREA NITROGEN 9 mg/dL (7-18); eGFR NON AFRICAN AMERICAN 71 mL/min (90-120)
[2020-06-14 15:44] LABS: GLUCOSE 168 mg/dL (74-106)
[2020-06-14 15:55] LABS: HEMATOCRIT 41.5 % (36.0-48.0); HEMOGLOBIN 13.7 g/dL (12-16); LYMPHOCYTE ABS# 1.06 10x3/uL (1.18-3.74); MCH 31.8 pg (26.0-34.0); MCV 96.3 fL (80.0-100.0); MEAN PLATELET VOLUME 11.1 fL (7.4-10.4); NEUTROPHIL ABS# 21.78 10x3/uL (1.56-6.13); PLATELET COUNT 291 10x3/uL (130-400); RBC 4.31 10x6/uL (4.00-5.40); RDW 13.5 % (11.5-14.5); WBC 23.9 10x3/uL (4.8-10.8)
[2020-06-14 15:56] LABS: ALBUMIN 4.3 g/dL (3.4-5.0); ALKALINE PHOSPHATASE 91 U/L (30-120); ALT (SGPT) 24 U/L (10-68); BILIRUBIN - TOTAL 0.32 mg/dL (0.2-1.3); CKMB 1.1 U/L (0.0-3.6); CREATINE KINASE 88 UL (21-215); PRO BNP 41 pg/mL (0-125); PROTEIN - SERUM 7.8 g/dL (6.4-8.2)
[2020-06-14 16:03] LABS: TROPONIN-I < 0.017 ng/mL (0.000-0.060)
[2020-06-14 16:52] LABS: BILIRUBIN NEGATIVE (NEGATIVE); KETONE NEGATIVE (NEGATIVE); NITRITE NEGATIVE (NEGATIVE); UROBILINOGEN NORMAL mg/dL (< 2)
[2020-06-14 17:12] LABS: LYMPHOCYTES 8 % (15-50); MONOCYTES 9 % (2-11); NEUTROPHILS 82 % (40-80); PLATELET ESTIMATE NORMAL
[2020-06-14 18:34] LABS: ERYTHROCYTE SEDIMENTATION RATE 8 mm/hr (0-20)
[2020-06-14] MEDS ORDERED: DICLOFENAC SODI50 MG PO (18:45)
[2020-06-14] MEDS ORDERED: KLOR-CON M2020 MEQ PO (18:45)
[2020-06-14] MEDS ORDERED: HYDROCHLOROTHIA25 MG PO (18:45)
== END 2020-06-14 18:54 | disposition home or self-care (01) ==
LOC: D.ER 14:22
PROVIDERS: Family Medicine
DX: R60.0 Localized edema (principal); R07.9 Chest pain, unspecified; E87.6 Hypokalemia; D72.829 Elevated white blood cell count, unspecified; I10 Essential (primary) hypertension; J44.9 Chronic obstructive pulmonary disease, unspecified; K21.9 Gastro-esophageal reflux disease without esophagitis; Z72.0 Tobacco use

== ENCOUNTER → 2020-07-29 08:08 | Outpatient (CLI) | payer BC ==
[2020-06-14 14:37] VITALS: BMI 24.3
[~2020-07-29 08:08] MED LIST changes: +DICLOFENAC SODI50 MG PO; +HYDROCHLOROTHIA25 MG PO; +KLOR-CON M2020 MEQ PO; +LYRICA25 MG
== END | disposition home or self-care (01) ==
LOC: D.MRI 07-14 14:30
PROVIDERS: ATTEND Family Medicine
DX: R20.2 Paresthesia of skin (principal)

== ENCOUNTER 2020-08-03 03:44 | Emergency (ER) | payer BC ==
[~2020-08-03] VITALS: Ht 149.9 cm; Wt 58.2 kg
[2020-08-03 03:48] VITALS: BP 134/85; Ht 149.9 cm; Wt 58.2 kg
== END 2020-08-03 04:30 | disposition home or self-care (01) ==
LOC: D.ER 03:44
DX: M54.2 Cervicalgia (principal); I10 Essential (primary) hypertension; J44.9 Chronic obstructive pulmonary disease, unspecified; K21.9 Gastro-esophageal reflux disease without esophagitis; Z72.0 Tobacco use; M25.511 Pain in right shoulder; M25.512 Pain in left shoulder

== ENCOUNTER 2020-08-24 07:13 | Day surgery (SDC) | payer BC ==
[~2020-08-24] VITALS: Ht 152.4 cm; Wt 75.0 kg
[~2020-08-24 07:13] MED LIST changes: +CLARITIN 10 MG10 MG PO; +ESTRACE2 MG PO; +FLUTICASONE PRO16 GM NASAL; +FUROSEMIDE20 MG PO; +LYRICA100 MG PO; -LYRICA25 MG; +OMEPRAZOLE40 MG PO; +PROAIR HFA8.5 G1 INH; +SINGULAIR10 MG PO
[2020-08-24 07:39] LABS: BASOPHILS 1.2 % (0-2); EOSINOPHILS 8.9 % (0-7); HEMATOCRIT 39.9 % (36.0-48.0); HEMOGLOBIN 13.1 g/dL (12-16); MCH 30.3 pg (26.0-34.0); MCHC 32.8 g/dL (31.0-37.0); MCV 92.4 fL (80.0-100.0); MEAN PLATELET VOLUME 9.1 fL (7.4-10.4); MONOCYTES 7.4 % (2-11); NEUTROPHILS 59.5 % (40-80); PLATELET COUNT 294 10x3/uL (130-400); RBC 4.32 10x6/uL (4.00-5.40); RDW 14.2 % (11.5-14.5); WBC 10.1 10x3/uL (4.8-10.8)
[2020-08-24 07:40] LABS: CALC OSMOLALITY 284 mosm/kg (275-300); CARBON DIOXIDE 30.7 mmol/L (21.0-32.0); CHLORIDE - SERUM 103 mmol/L (98-107); CREATININE - SERUM 0.8 mg/dL (0.6-1.3); POTASSIUM - SERUM 3.8 mmol/L (3.5-5.1); SODIUM 143 mmol/L (136-145); UREA NITROGEN 13 mg/dL (7-18); eGFR NON AFRICAN AMERICAN 81 mL/min (90-120)
[2020-08-24 07:41] LABS: GLUCOSE 100 mg/dL (74-106)
[2020-08-24 09:45] VITALS: BP 112/71; BMI 25.0
--- NOTE | 2020-08-24 14:46 | NUR ---
NEURO CHECKS (CIRCULATION, MOVEMENT AND SENSATION) TO BILAT UPPER EXTREMITIES AND AND BILAT LOWER EXTREMITIES ALL WNL. PT DENIES NUMBNESS OR TINGLING.
--- NOTE | 2020-08-24 15:37 | NUR ---
CALLED TO GIVE REPORT TO MED 3, NURSE SAID SHE WILL CALL BACK SHORTLY FOR REPORT.
[2020-08-24 16:41] VITALS: BP 94/64; Ht 152.4 cm; Wt 75.0 kg
--- NOTE | 2020-08-24 19:00 | NUR ---
UP AMBULATING IN ROOM, WANTING TO WALK TO VENDING MACHINE, INSTRUCTED NEEDS TO BE WEARING SOFT CERCICAL COLLAR WHEN UP, STATES DOES NOT HAVE ONE, HS NOTIFIED OF NEED FOR SOFT CERVICAL COLLAR, SWELLING NOTED TO LEFT SIDE OF NECK WHERE INSISION IS ICE PACK GIVEN AND INSTRUCTED TO STAY IN BED UNTIL CAN GET COLLAR, VERBALIZED UNDERSTANDING, DENIES SWALLOWING DIFFICULTY, OR RESP DIFFICULTY, NO NUMBNESS OR TINGLING TO UPPER EXTREMITIES, SEE SHIFT ASSESSMENT, CALL LIGHT IN REACH, REMINDED TO STAY WITH CLEAR LIQUIDS FOR TONIGHT
--- NOTE | 2020-08-24 20:00 | NUR ---
RECIEVED SOFT C COLLAR INSTRUCTED PT ON HOW TO PUT ON AND INSTRUCTED NEED TO WEAR WHEN GETTING UP VERBALIZED UNDERSTANDING
[2020-08-24 20:13] VITALS: BP 106/68
[2020-08-25] VITALS: BP 90/58
[2020-08-25 04:06] VITALS: BP 106/60
[2020-08-25 07:11] VITALS: BP 109/54
--- NOTE | 2020-08-25 07:48 | NUR ---
C-PAP AT BED SIDE. PT STATES PAIN LEVEL IS AN 8 OUT OF 10 ON THE PAIN SCALE. TREATED PER EMAR. CL IN REACH. LEFT NECK INCISION HAS SOME BLOODY DRAINAGE AND SWELLING. ICE PACK ON NECK TO REDUCE SWELLING. NO FURTHER NEEDS AT THIS TIME. WCTM
[2020-08-25] MEDS ORDERED: HYDROCODON-ACE1 EA10 PO (08:44)
[2020-08-25] MEDS ORDERED: MEDROL DOSE PACK4 MG PO (08:45)
--- NOTE | 2020-08-25 09:36 | OP ---
PATIENT NAME: RODO ROPER MEDICAL RECORD: [id number] :74 LOCATION:D.M3 D.1205 ADMISSION DATE: SURGEON: KAIN BRASHER MD DATE OF OPERATION: 08/24/2020 DATE OF SERVICE: 08/24/2020 PREOPERATIVE DIAGNOSES: Large disk herniation with spinal cord compression at C3-C4 with cervical myelopathy. POSTOPERATIVE DIAGNOSES: Large disk herniation with spinal cord compression at C3-C4 with cervical myelopathy. PROCEDURE: Anterior cervical discectomy and fusion at C3-C4 with [facility] anterior cervical plate and screws, PEEK interbody cage, Adenike bone allograft, removal of osteophytes. SURGEON: Kain Brasher MD DESCRIPTION OF PROCEDURE: After induction of general endotracheal anesthesia, the patient was positioned supine on the operating table. Neck was prepped and draped in the usual sterile fashion and fluoroscopic x-ray and freer localized the C3-C4 interspace. After infiltration with 1:100,000 epinephrine with 1% lidocaine, a transverse skin incision was carried out from the midline to the sternocleidomastoid muscle. The platysma was divided with sharp dissection. Using blunt and sharp dissection with Metzenbaum scissors, I proceeded in an avascular plane medial to the carotid sheath. The C3-C4 interspace was identified with fluoroscopic x-ray. The prior anterior cervical plate and screws from C4-C5 and C5-C6 was removed after dissection from the scar tissue in the anterior cervical spine. Self-retaining retractor was placed deep in the longus colli muscles at C3-C4. [place] distracting pins were placed in the bodies of C3 and C4. Good position of the hardware was confirmed with fluoroscopic x-ray. The C3-C4 interspace was then incised with a #11 blade. The disk material was removed with pituitary rongeurs. The cartilaginous endplates were removed with curettes. Following this, there was a large hole in the posterior longitudinal ligament. A disk herniation was removed from its hole. This relieved compression on the dura. The posterior longitudinal ligament was removed from the remainder of the disk space. Next, the PEEK interbody cage was placed in the disk space under distraction. Prior to this, it was filled with Adenike bone allograft. A 16 mm plate and screws were used to span the C3-C4 interspace. Locking cams were tightened down to the screw heads. Good position of hardware was confirmed with fluoroscopic x-ray. Meticulous hemostasis was maintained throughout the wound. The wound was irrigated with copious amounts of Ancef irrigant solution. The platysma and subdermal layer closed with interrupted 4-0 Vicryl suture. The skin was reapproximated with Steri-Strips and benzoin. A sterile dressing was applied to the wound. The patient was awakened in good condition and taken to recovery. All counts were reported as correct. ESTIMATED BLOOD LOSS: Minimal. TRANSINT:[id number] Voice Confirmation ID: [id number] DOCUMENT ID: [id number] OPERATIVE REPORT [id number] RODO ROPER JOHN MD at 0936 CC: [id number] DICTATION DATE: 08/24/20 1456 ERP SPECIALIST: 08/24/20 1645 [facility] [address] [place] [address]
[2020-08-25 11:00] VITALS: BP 125/78
--- NOTE | 2020-08-25 11:04 | NUR ---
IV THERAPY REMOVED FROM LEFT FOREARM WITH TIP INTACT. DISCHARGE INSTRUCTIONS GIVEN. PT SCRIPT GIVEN FOR DAHLIAS. PT VOICED UNDERSTANDING OF DISCHARGE INSTRUCTIONS. NO QUESTIONS OR CONCERNS SINCE SHE HAS HAD THIS SURGERY PREVIOUSLY. WAITING ON RIDE. TM
--- NOTE | 2020-08-25 11:54 | NUR ---
MOTHER HERE TO GET PT. PT REFUSED WHEELCHAIR FOR SELF BUT HAD US CARRY HER STUFF OUT.
== END 2020-08-25 11:56 | disposition home or self-care (01) ==
LOC: D.M3 07:13 → D.OPS 07:13 → D.M3 15:58 → D.OPS 08-25 11:56
PROVIDERS: Anesthesiology; ATTEND Neurological Surgery
DX: M50.01 Cervical disc disorder with myelopathy, high cervical region (principal); M50.21 Other cervical disc displacement, high cervical region; G95.9 Disease of spinal cord, unspecified

== ENCOUNTER 2020-09-02 06:42 | Emergency (ER) | payer BC ==
[~2020-09-02] VITALS: Ht 152.4 cm; Wt 53.6 kg
[~2020-09-02 06:42] MED LIST changes: +HYDROCODON-ACE1 EA10 PO; +MEDROL DOSE PACK4 MG PO
[2020-09-02 06:44] VITALS: BP 128/79; Ht 152.4 cm; Wt 53.6 kg
== END 2020-09-02 07:43 | disposition home or self-care (01) ==
LOC: D.ER 06:42
DX: T81.30XA Disruption of wound, unspecified, initial encounter (principal); I10 Essential (primary) hypertension; J44.9 Chronic obstructive pulmonary disease, unspecified; K21.9 Gastro-esophageal reflux disease without esophagitis; Z72.0 Tobacco use